=== PATIENT | male | born 1940 | race African-American/Black ===

== ENCOUNTER 2017-06-11 17:21 | Inpatient (IN) | payer MEDICARE, BC ==
[~2017-06-11] VITALS: Ht 170.2 cm; Wt 72.1 kg
[~2017-06-11 17:21] MED LIST: AMLO10TA4 PO; ATOR10TA69 PO; CARV12.545 PO; CITR473S4 PO; COLC0.6T66 PO; CRESTOR PO; FEBU40TA PO; FLUT1DIS3 IH; LEVO150T8 PO; MONT10TA21 PO; OMEP20CA4 PO; PREG75CA PO; ZOLP5TAB2 PO; [UNRECOGNIZED DRUG - CODE] PO
[2017-06-11] MEDS ORDERED: IPRATROPIUM BROMIDE (0.02%) 0.5MG/2.5ML NEB HHN STA (18:00)
[2017-06-11] MEDS ORDERED: NITROGLYCERIN OINT 1GM/INCH UDPKT TD STA (18:00)
[2017-06-11] MEDS ORDERED: ALBUTEROL (0.083%) 2.5MG/3ML NEB HHN STA (18:00)
[2017-06-11] MEDS ORDERED: FUROSEMIDE 40MG/4ML VIAL IV STA (18:00)
[2017-06-11] MEDS ORDERED: METHYLPREDNISOLONE SOD SUCC 125 MG/2 ML VIAL IV STA (18:00)
[2017-06-11] MEDS ORDERED: MAGNESIUM 2 G PREMIX 50 ML IV ONE (18:00)
[2017-06-11 18:32] LABS: INR 1.1; PROTHROMBIN TIME 11.8 sec (9.4-11.6)
[2017-06-11] MEDS ORDERED: ALBUTEROL (0.5%) 2.5MG/0.5ML NEB HHN ONE (18:32)
[2017-06-11] MEDS ORDERED: ALBUTEROL (0.083%) 2.5MG/3ML NEB ONE (18:33)
[2017-06-11] MEDS ORDERED: IPRATROPIUM BROMIDE (0.02%) 0.5MG/2.5ML NEB ONE (18:33)
[2017-06-11 18:37] LABS: BASOPHILS % 0.4 % (0.0-2.0); EOSINOPHILS % 0.1 % (0.0-5.0); HEMATOCRIT. 38.1 % (42.0-52.0); HEMOGLOBIN. 12.2 g/dL (14.0-18.0); LYMPHOCYTES % 12.3 % (20.0-50.0); MEAN CORPUSCULAR HEMOGLOBIN 30.5 pg (28.0-32.0); MEAN PLATELET VOLUME 9.5 fl (7.4-10.4); MONOCYTES % 6.9 % (2.0-8.0); NEUTROPHILS % 80.3 % (40.0-76.0); PLATELET 221 x1000/uL (130-400); RED BLOOD CELL COUNT 4.01 mill/uL (4.7-6.1); RED CELL DISTRIBUTION WIDTH 16.9 % (11.6-14.6)
[2017-06-11 18:41] LABS: CARBON DIOXIDE 22 mEq/L (21-32); CHLORIDE 109 mEq/L (98-107); TROPONIN I 0.37 ng/mL (0.00-0.04)
[2017-06-11] MEDS ORDERED: ASPIRIN 325MG TABLET PO ONE (19:00)
[2017-06-11 20:15] VITALS: BP 126/90
[2017-06-11] MEDS ORDERED: MAGNESIUM CITRATE 300ML SOLUTION PO PRN (23:45)
[2017-06-11] MEDS ORDERED: ONDANSETRON HCL 4MG/2ML VIAL IV PRN (23:45)
[2017-06-12 00:14] VITALS: BP 98/67
[2017-06-12] MEDS: IPRATROPIUM/ALBUTEROL 0.5-3(2.5)MG/3ML NEB HHN PRN (00:20)
[2017-06-12] MEDS ORDERED: NON FORMULARY PATIENT HOME MED EA PO SCH (00:30)
[2017-06-12] MEDS: ZOLPIDEM TARTRATE 5MG TABLET PO SCH ×2 (01:00→21:18)
[2017-06-12 03:22] LABS: CREATINE KINASE MB FRACTION 3.9 ng/mL (0.5-3.6); TROPONIN I 0.23 ng/mL (0.00-0.04)
[2017-06-12 04:00] VITALS: BP 104/68
[2017-06-12] MEDS ORDERED: FUROSEMIDE IV SCH (04:00)
[2017-06-12] MEDS: IPRATROPIUM/ALBUTEROL 0.5-3(2.5)MG/3ML NEB HHN SCH ×5 (04:50→21:03)
[2017-06-12 07:32] LABS: BASOPHILS % 0.6 % (0.0-2.0); HEMATOCRIT. 34.7 % (42.0-52.0); HEMOGLOBIN. 11.2 g/dL (14.0-18.0); LYMPHOCYTES % 9.6 % (20.0-50.0); MEAN CORPUSCULAR HEMOGLOBIN 30.2 pg (28.0-32.0); MEAN CORPUSCULAR VOLUME 93.7 fL (80.0-94.0); MEAN PLATELET VOLUME 8.9 fl (7.4-10.4); MONOCYTES % 3.2 % (2.0-8.0); NEUTROPHILS % 86.6 % (40.0-76.0); PLATELET 211 x1000/uL (130-400); RED CELL DISTRIBUTION WIDTH 16.5 % (11.6-14.6)
[2017-06-12 07:35] LABS: CLARITY URINE CLEAR (CLEAR); COLOR URINE YELLOW (YELLOW); KETONES URINE NEGATIVE (NEGATIVE); LEUKOCYTE ESTERASE URINE NEGATIVE (NEGATIVE); NITRITE URINE NEGATIVE (NEGATIVE); OCCULT BLOOD URINE NEGATIVE (NEGATIVE); PROTEIN URINE NEGATIVE (NEGATIVE); SPECIFIC GRAVITY URINE 1.013 (1.005-1.030); UROBILINOGEN URINE 0.2 E.U./dL (0.2-1.0)
[2017-06-12 08:00] VITALS: BP 102/69
[2017-06-12 08:38] LABS: CARBON DIOXIDE 20 mEq/L (21-32); CHLORIDE 110 mEq/L (98-107); HDL CHOLESTEROL 54 mg/dL (40-59); LDL CHOLESTEROL 52 mg/dL (5-100); PHOSPHORUS 3.9 mg/dL (2.5-4.9); T4 FREE 0.77 ng/dL (0.76-1.46); TOTAL IRON BINDING CAPACITY 319 ug/dL (250-450)
[2017-06-12] MEDS: OMEPRAZOLE 20MG CAPSULE EXTENDED RELEASE PO SCH (08:38)
[2017-06-12] MEDS: COLCHICINE 0.6MG TABLET PO SCH (08:38)
[2017-06-12] MEDS: ASCORBIC ACID 500 MG TABLET PO SCH (08:38)
[2017-06-12] MEDS: AMLODIPINE 10MG TABLET PO SCH (08:38)
[2017-06-12] MEDS: MONTELUKAST SODIUM 10MG TABLET PO SCH (08:39)
[2017-06-12] MEDS ORDERED: CARVEDILOL 12.5MG TABLET PO SCH (09:00)
[2017-06-12] MEDS: LEVOTHYROXINE SODIUM 150MCG TABLET PO SCH (09:07)
[2017-06-12] MEDS: PREGABALIN 75MG CAPSULE PO SCH ×2 (09:07→21:17)
[2017-06-12 12:00] VITALS: BP 116/80
[2017-06-12] MEDS: DEXTROSE 5% IV SCH (12:22)
[2017-06-12] MEDS: FUROSEMIDE IV SCH (12:22)
[2017-06-12] MEDS: WATER IV SCH (12:22)
[2017-06-12] MEDS: BENZONATATE 100MG CAPSULE PO SCH ×2 (14:49→21:17)
[2017-06-12 16:00] VITALS: BP 105/70
[2017-06-12] MEDS: GUAIFENESIN 200MG/10ML SUGAR FREE UDC PO PRN (19:01)
[2017-06-12 20:00] VITALS: BP 132/87
[2017-06-12] MEDS ORDERED: ATORVASTATIN CALCIUM 10MG TABLET PO SCH (21:00)
[2017-06-12] MEDS: CARVEDILOL 12.5MG TABLET PO SCH (21:17)
[2017-06-12] MEDS: ACETAMINOPHEN 325MG TABLET PO PRN (22:03)
[2017-06-13] VITALS (7 sets, daily range): BP systolic 98–120; BP diastolic 67–87
[2017-06-13] MEDS: IPRATROPIUM/ALBUTEROL 0.5-3(2.5)MG/3ML NEB HHN SCH ×7 (04:30→20:52)
[2017-06-13] MEDS: BENZONATATE 100MG CAPSULE PO SCH ×3 (06:19→21:50)
[2017-06-13 07:51] LABS: PHOSPHORUS 3.9 mg/dL (2.5-4.9)
[2017-06-13] MEDS: GUAIFENESIN 200MG/10ML SUGAR FREE UDC PO PRN ×2 (08:40→21:49)
[2017-06-13] MEDS: MONTELUKAST SODIUM 10MG TABLET PO SCH (08:41)
[2017-06-13] MEDS: LEVOTHYROXINE SODIUM 150MCG TABLET PO SCH (08:42)
[2017-06-13] MEDS: ASCORBIC ACID 500 MG TABLET PO SCH (08:42)
[2017-06-13] MEDS: PREGABALIN 75MG CAPSULE PO SCH ×2 (08:42→21:50)
[2017-06-13] MEDS: OMEPRAZOLE 20MG CAPSULE EXTENDED RELEASE PO SCH (08:42)
[2017-06-13] MEDS: CARVEDILOL 12.5MG TABLET PO SCH ×2 (08:42→21:49)
[2017-06-13] MEDS: COLCHICINE 0.6MG TABLET PO SCH (08:43)
[2017-06-13] MEDS: AMLODIPINE 10MG TABLET PO SCH (08:43)
[2017-06-13] MEDS ORDERED: METOLAZONE 10MG TABLET PO SCH (10:30)
[2017-06-13] MEDS: DEXTROSE 5% IV SCH (10:48)
[2017-06-13] MEDS: FUROSEMIDE IV SCH (10:48)
[2017-06-13] MEDS: WATER IV SCH (10:48)
[2017-06-13] MEDS: SODIUM CHLORIDE 0.9% IV SCH (13:21)
[2017-06-13] MEDS: BUMETANIDE IV SCH (13:21)
[2017-06-13] MEDS: ZOLPIDEM TARTRATE 5MG TABLET PO SCH (21:50)
[2017-06-14] VITALS: BP 118/88
[2017-06-14] MEDS: IPRATROPIUM/ALBUTEROL 0.5-3(2.5)MG/3ML NEB HHN SCH ×6 (00:31→20:46)
[2017-06-14] MEDS: BENZONATATE 100MG CAPSULE PO SCH ×3 (06:17→21:26)
[2017-06-14 07:08] LABS: CARBON DIOXIDE 21 mEq/L (21-32); CHLORIDE 107 mEq/L (98-107)
[2017-06-14 08:03] VITALS: BP 118/80
[2017-06-14] MEDS: PREGABALIN 75MG CAPSULE PO SCH ×2 (08:38→20:33)
[2017-06-14] MEDS: FAMOTIDINE 20MG TABLET PO SCH (08:39)
[2017-06-14] MEDS: AMLODIPINE 10MG TABLET PO SCH (08:39)
[2017-06-14] MEDS: LEVOTHYROXINE SODIUM 150MCG TABLET PO SCH (08:39)
[2017-06-14] MEDS: MONTELUKAST SODIUM 10MG TABLET PO SCH (08:39)
[2017-06-14] MEDS: CARVEDILOL 12.5MG TABLET PO SCH ×2 (08:39→20:32)
[2017-06-14] MEDS: ASCORBIC ACID 500 MG TABLET PO SCH (08:39)
[2017-06-14] MEDS: GUAIFENESIN 200MG/10ML SUGAR FREE UDC PO PRN ×2 (08:40→20:34)
[2017-06-14] MEDS: METOLAZONE 10MG TABLET PO SCH (08:40)
[2017-06-14 12:00] VITALS: BP 104/73
[2017-06-14] MEDS: BUMETANIDE IV SCH (14:16)
[2017-06-14] MEDS: SODIUM CHLORIDE 0.9% IV SCH (14:16)
[2017-06-14 16:00] VITALS: BP 111/72
[2017-06-14 20:00] VITALS: BP 98/65
[2017-06-15] VITALS (9 sets, daily range): BP systolic 103–132; BP diastolic 72–87
[2017-06-15] MEDS: ZOLPIDEM TARTRATE 5MG TABLET PO SCH ×2 (00:14→21:24)
[2017-06-15] MEDS: MILRINONE 20MG-DEXT 5% PREMIX 100 ML IV SCH (00:41)
[2017-06-15] MEDS: IPRATROPIUM/ALBUTEROL 0.5-3(2.5)MG/3ML NEB HHN PRN (00:57)
[2017-06-15] MEDS: IPRATROPIUM/ALBUTEROL 0.5-3(2.5)MG/3ML NEB HHN SCH ×5 (02:00→20:03)
[2017-06-15] MEDS: LEVOTHYROXINE SODIUM 150MCG TABLET PO SCH (06:43)
[2017-06-15] MEDS: GUAIFENESIN 200MG/10ML SUGAR FREE UDC PO PRN (06:43)
[2017-06-15] MEDS: BENZONATATE 100MG CAPSULE PO SCH ×3 (06:43→21:24)
[2017-06-15] MEDS: ACETAMINOPHEN 325MG TABLET PO PRN (07:00)
[2017-06-15 07:47] LABS: BASOPHILS % 0.2 % (0.0-2.0); EOSINOPHILS % 4.1 % (0.0-5.0); HEMATOCRIT. 39.6 % (42.0-52.0); HEMOGLOBIN. 12.8 g/dL (14.0-18.0); LYMPHOCYTES % 17.2 % (20.0-50.0); MEAN CORPUSCULAR VOLUME 92.9 fL (80.0-94.0); MEAN PLATELET VOLUME 9.4 fl (7.4-10.4); MONOCYTES % 11.6 % (2.0-8.0); NEUTROPHILS % 66.9 % (40.0-76.0); PLATELET 214 x1000/uL (130-400); RED BLOOD CELL COUNT 4.26 mill/uL (4.7-6.1); RED CELL DISTRIBUTION WIDTH 16.3 % (11.6-14.6)
[2017-06-15 08:08] LABS: INR 1.1; PARTIAL THROMBOPLASTIN TIME 24.3 sec (23.4-31.0); PROTHROMBIN TIME 11.6 sec (9.4-11.6)
[2017-06-15] MEDS: AMLODIPINE 10MG TABLET PO SCH ×2 (09:08→12:02)
[2017-06-15] MEDS: PREGABALIN 75MG CAPSULE PO SCH ×2 (09:08→21:24)
[2017-06-15] MEDS: FAMOTIDINE 20MG TABLET PO SCH (09:08)
[2017-06-15] MEDS: MONTELUKAST SODIUM 10MG TABLET PO SCH (09:09)
[2017-06-15] MEDS: METOLAZONE 10MG TABLET PO SCH (09:09)
[2017-06-15] MEDS: ASCORBIC ACID 500 MG TABLET PO SCH (09:18)
[2017-06-15] MEDS: CARVEDILOL 12.5MG TABLET PO SCH ×2 (09:19→21:24)
[2017-06-15] MEDS ORDERED: REGADENOSON 0.4 MG/5 ML IV NR (11:35)
[2017-06-16] VITALS (11 sets, daily range): BP systolic 96–120; BP diastolic 48–84
[2017-06-16] MEDS: IPRATROPIUM/ALBUTEROL 0.5-3(2.5)MG/3ML NEB HHN SCH ×6 (00:50→20:26)
[2017-06-16] MEDS: ACETAMINOPHEN 325MG TABLET PO PRN (02:57)
[2017-06-16] MEDS: LEVOTHYROXINE SODIUM 150MCG TABLET PO SCH (06:31)
[2017-06-16] MEDS: BENZONATATE 100MG CAPSULE PO SCH ×3 (06:31→21:19)
[2017-06-16 07:06] LABS: BASOPHILS % 0.4 % (0.0-2.0); EOSINOPHILS % 5.9 % (0.0-5.0); HEMATOCRIT. 42.2 % (42.0-52.0); HEMOGLOBIN. 13.8 g/dL (14.0-18.0); LYMPHOCYTES % 16.5 % (20.0-50.0); MEAN CORPUSCULAR HEMOGLOBIN 29.9 pg (28.0-32.0); MEAN CORPUSCULAR VOLUME 91.8 fL (80.0-94.0); MEAN PLATELET VOLUME 9.6 fl (7.4-10.4); NEUTROPHILS % 65.2 % (40.0-76.0); PLATELET 217 x1000/uL (130-400); RED CELL DISTRIBUTION WIDTH 16.2 % (11.6-14.6)
[2017-06-16 07:55] LABS: CARBON DIOXIDE 31 mEq/L (21-32); CHLORIDE 99 mEq/L (98-107); PHOSPHORUS 4.2 mg/dL (2.5-4.9)
[2017-06-16] MEDS: PREGABALIN 75MG CAPSULE PO SCH ×2 (08:39→21:19)
[2017-06-16] MEDS: ASCORBIC ACID 500 MG TABLET PO SCH (08:39)
[2017-06-16] MEDS: FAMOTIDINE 20MG TABLET PO SCH (08:39)
[2017-06-16] MEDS: MONTELUKAST SODIUM 10MG TABLET PO SCH (08:39)
[2017-06-16] MEDS: METOLAZONE 10MG TABLET PO SCH (08:39)
[2017-06-16] MEDS: AMLODIPINE 10MG TABLET PO SCH (08:40)
[2017-06-16] MEDS: CARVEDILOL 12.5MG TABLET PO SCH ×2 (08:40→22:18)
[2017-06-16] MEDS ORDERED: POTASSIUM CHLORIDE 20MEQ TABLET SR PO NR (08:45)
[2017-06-16] MEDS: MILRINONE 20MG-DEXT 5% PREMIX 100 ML IV SCH (10:04)
[2017-06-16] MEDS: GUAIFENESIN 200MG/10ML SUGAR FREE UDC PO PRN (14:20)
[2017-06-16] MEDS: ZOLPIDEM TARTRATE 5MG TABLET PO SCH (21:19)
[2017-06-17] VITALS (15 sets, daily range): BP systolic 85–118; BP diastolic 44–72
[2017-06-17] MEDS ORDERED: BUMETANIDE 1MG/4ML VIAL IV NR
[2017-06-17] MEDS: IPRATROPIUM/ALBUTEROL 0.5-3(2.5)MG/3ML NEB HHN SCH ×4 (04:15→20:08)
[2017-06-17] MEDS: MILRINONE 20MG-DEXT 5% PREMIX 100 ML IV SCH ×2 (06:12→15:43)
[2017-06-17] MEDS: LEVOTHYROXINE SODIUM 150MCG TABLET PO SCH (06:13)
[2017-06-17] MEDS: BENZONATATE 100MG CAPSULE PO SCH ×3 (06:13→21:33)
[2017-06-17 07:04] LABS: PHOSPHORUS 3.4 mg/dL (2.5-4.9)
[2017-06-17] MEDS: PREGABALIN 75MG CAPSULE PO SCH ×2 (08:46→21:33)
[2017-06-17] MEDS: MONTELUKAST SODIUM 10MG TABLET PO SCH (08:46)
[2017-06-17] MEDS: CARVEDILOL 12.5MG TABLET PO SCH ×3 (08:46→21:33)
[2017-06-17] MEDS: METOLAZONE 10MG TABLET PO SCH (08:47)
[2017-06-17] MEDS: FAMOTIDINE 20MG TABLET PO SCH (08:47)
[2017-06-17] MEDS: ASCORBIC ACID 500 MG TABLET PO SCH (08:47)
[2017-06-17] MEDS: AMLODIPINE 10MG TABLET PO SCH (08:47)
[2017-06-17] MEDS: ACETAMINOPHEN 325MG TABLET PO PRN ×2 (08:55→16:33)
[2017-06-17] MEDS ORDERED: POTASSIUM CHLORIDE 20MEQ TABLET SR PO SCH (10:30)
[2017-06-17] MEDS ORDERED: MAGNESIUM 2 G PREMIX 50 ML IV SCH (12:00)
[2017-06-17] MEDS: GUAIFENESIN 200MG/10ML SUGAR FREE UDC PO PRN (16:37)
[2017-06-17] MEDS ORDERED: ZOLPIDEM TARTRATE 5MG TABLET PO ONE (21:10)
[2017-06-18] VITALS (9 sets, daily range): BP systolic 89–113; BP diastolic 53–83
[2017-06-18] MEDS: MILRINONE 20MG-DEXT 5% PREMIX 100 ML IV SCH ×2 (01:04→11:05)
[2017-06-18] MEDS: IPRATROPIUM/ALBUTEROL 0.5-3(2.5)MG/3ML NEB HHN SCH ×5 (04:00→13:50)
[2017-06-18] MEDS: LEVOTHYROXINE SODIUM 150MCG TABLET PO SCH (06:28)
[2017-06-18] MEDS: BENZONATATE 100MG CAPSULE PO SCH ×3 (06:28→21:02)
[2017-06-18 06:56] LABS: BASOPHILS % 0.6 % (0.0-2.0); EOSINOPHILS % 6.4 % (0.0-5.0); HEMATOCRIT. 38.8 % (42.0-52.0); HEMOGLOBIN. 12.6 g/dL (14.0-18.0); LYMPHOCYTES % 17.8 % (20.0-50.0); MEAN CORPUSCULAR HEMOGLOBIN 29.9 pg (28.0-32.0); MEAN CORPUSCULAR VOLUME 92.2 fL (80.0-94.0); MEAN PLATELET VOLUME 9.8 fl (7.4-10.4); MONOCYTES % 13.4 % (2.0-8.0); NEUTROPHILS % 61.8 % (40.0-76.0); PLATELET 219 x1000/uL (130-400); RED BLOOD CELL COUNT 4.21 mill/uL (4.7-6.1); RED CELL DISTRIBUTION WIDTH 16.3 % (11.6-14.6)
[2017-06-18 07:21] LABS: CARBON DIOXIDE 31 mEq/L (21-32); CHLORIDE 99 mEq/L (98-107); TROPONIN I 0.05 ng/mL (0.00-0.04)
[2017-06-18] MEDS: ACETAMINOPHEN 325MG TABLET PO PRN (08:40)
[2017-06-18] MEDS: AMLODIPINE 10MG TABLET PO SCH (09:00)
[2017-06-18] MEDS: METOLAZONE 10MG TABLET PO SCH (09:00)
[2017-06-18] MEDS: MONTELUKAST SODIUM 10MG TABLET PO SCH (09:00)
[2017-06-18] MEDS: CARVEDILOL 12.5MG TABLET PO SCH ×2 (09:00→21:02)
[2017-06-18] MEDS: FAMOTIDINE 20MG TABLET PO SCH (09:00)
[2017-06-18] MEDS: ASCORBIC ACID 500 MG TABLET PO SCH (09:00)
[2017-06-18] MEDS: PREGABALIN 75MG CAPSULE PO SCH ×2 (09:00→21:02)
[2017-06-18] MEDS ORDERED: GENTAMICIN SULF 40MG/ML 2ML VIAL ONE (09:21)
[2017-06-18] MEDS ORDERED: LIDOCAINE HCL 1% 20ML VIAL (Pyxis) INJ ONE ×3 (09:22→14:41)
[2017-06-18] MEDS ORDERED: CEFAZOLIN 1000MG PREMIX 100 ML IV ONE (09:22)
[2017-06-18] MEDS ORDERED: IODIXANOL 320MG/ML 100 ML BOTTLE IV ONE (09:27)
[2017-06-18] MEDS ORDERED: GENTAMICIN/NS IRRIGATION 500 ML IR ONE (09:29)
[2017-06-18] MEDS ORDERED: MIDAZOLAM HCL 2 MG/2 ML VIAL ONE ×2 (14:09→17:00)
[2017-06-18] MEDS ORDERED: FENTANYL CITRATE/PF 50MCG/ML 2ML VIAL ONE (14:09)
[2017-06-18] MEDS ORDERED: DIPHENHYDRAMINE 50MG/ML VIAL ONE (14:12)
[2017-06-18] MEDS ORDERED: PROPOFOL 200MG/20ML VIAL IV ONE (14:38)
[2017-06-18] MEDS ORDERED: SODIUM CHLORIDE 0.9% 10ML VIAL ONE (14:54)
[2017-06-18] MEDS ORDERED: PHENYLEPHRINE HCL 10 MG/ML 1ML (IV VIAL) IV ONE (14:54)
[2017-06-18] MEDS ORDERED: FUROSEMIDE 20MG/2ML VIAL ONE (17:46)
[2017-06-18] MEDS: GUAIFENESIN 200MG/10ML SUGAR FREE UDC PO PRN (21:01)
[2017-06-18] MEDS: ZOLPIDEM TARTRATE 5MG TABLET PO SCH (21:02)
[2017-06-18] MEDS: HYDROCODONE/ACETAMINOPHEN 5/325MG TABLET PO PRN (21:03)
[2017-06-18] MEDS: CEFAZOLIN 1000MG PREMIX 50 ML IV SCH (21:45)
[2017-06-19] VITALS (16 sets, daily range): BP systolic 85–116; BP diastolic 54–73
[2017-06-19] MEDS: MILRINONE 20MG-DEXT 5% PREMIX 100 ML IV SCH ×2 (00:05→12:40)
[2017-06-19] MEDS: IPRATROPIUM/ALBUTEROL 0.5-3(2.5)MG/3ML NEB HHN SCH ×5 (02:22→20:54)
[2017-06-19] MEDS: LEVOTHYROXINE SODIUM 150MCG TABLET PO SCH (06:05)
[2017-06-19] MEDS: BENZONATATE 100MG CAPSULE PO SCH ×3 (06:05→21:21)
[2017-06-19] MEDS: CEFAZOLIN 1000MG PREMIX 50 ML IV SCH (06:05)
[2017-06-19] MEDS: GUAIFENESIN 200MG/10ML SUGAR FREE UDC PO PRN ×2 (06:05→21:21)
[2017-06-19 06:33] LABS: HEMATOCRIT. 37.8 % (42.0-52.0); HEMOGLOBIN. 12.8 g/dL (14.0-18.0); MEAN CORPUSCULAR HEMOGLOBIN 31.5 pg (28.0-32.0); MEAN CORPUSCULAR VOLUME 92.8 fL (80.0-94.0); MEAN PLATELET VOLUME 9.9 fl (7.4-10.4); PLATELET 196 x1000/uL (130-400); RED BLOOD CELL COUNT 4.07 mill/uL (4.7-6.1); RED CELL DISTRIBUTION WIDTH 15.9 % (11.6-14.6)
[2017-06-19] MEDS: ASCORBIC ACID 500 MG TABLET PO SCH (08:13)
[2017-06-19] MEDS: MONTELUKAST SODIUM 10MG TABLET PO SCH (08:13)
[2017-06-19] MEDS: PREGABALIN 75MG CAPSULE PO SCH ×2 (08:13→21:21)
[2017-06-19] MEDS: FAMOTIDINE 20MG TABLET PO SCH (08:14)
[2017-06-19] MEDS: AMLODIPINE 10MG TABLET PO SCH (08:17)
[2017-06-19] MEDS: CARVEDILOL 12.5MG TABLET PO SCH (08:18)
[2017-06-19] MEDS: HYDROCODONE/ACETAMINOPHEN 5/325MG TABLET PO PRN ×2 (08:23→15:14)
[2017-06-19] MEDS ORDERED: POTASSIUM CHLORIDE 20MEQ TABLET SR PO NR (11:30)
[2017-06-19] MEDS ORDERED: MAGNESIUM 1 G PREMIX 100 ML IV NR (14:00)
[2017-06-19 14:13] LABS: PLATELET ESTIMATE NORMAL
[2017-06-19] MEDS: METOPROLOL TARTRATE 25MG TABLET PO SCH (21:21)
[2017-06-19] MEDS: CARVEDILOL 25MG TABLET PO SCH (21:21)
[2017-06-19] MEDS: ZOLPIDEM TARTRATE 5MG TABLET PO SCH (21:21)
[2017-06-20] VITALS (14 sets, daily range): BP systolic 91–130; BP diastolic 50–80
[2017-06-20] MEDS: IPRATROPIUM/ALBUTEROL 0.5-3(2.5)MG/3ML NEB HHN SCH ×5 (01:03→21:00)
[2017-06-20] MEDS: LEVOTHYROXINE SODIUM 150MCG TABLET PO SCH (06:10)
[2017-06-20] MEDS: HYDROCODONE/ACETAMINOPHEN 5/325MG TABLET PO PRN ×2 (06:10→17:50)
[2017-06-20] MEDS: BENZONATATE 100MG CAPSULE PO SCH ×3 (06:10→21:06)
[2017-06-20 07:27] LABS: CHLORIDE 98 mEq/L (98-107)
[2017-06-20 07:53] LABS: CARBON DIOXIDE 31 mEq/L (21-32)
[2017-06-20] MEDS: PREGABALIN 75MG CAPSULE PO SCH ×2 (09:01→21:06)
[2017-06-20] MEDS: FAMOTIDINE 20MG TABLET PO SCH (09:01)
[2017-06-20] MEDS: ASCORBIC ACID 500 MG TABLET PO SCH (09:01)
[2017-06-20] MEDS: MONTELUKAST SODIUM 10MG TABLET PO SCH (09:01)
[2017-06-20] MEDS: METOPROLOL TARTRATE 25MG TABLET PO SCH ×2 (09:51→21:08)
[2017-06-20] MEDS: CARVEDILOL 25MG TABLET PO SCH ×2 (09:52→21:06)
[2017-06-20] MEDS: AMLODIPINE 10MG TABLET PO SCH (10:08)
[2017-06-20] MEDS: ZOLPIDEM TARTRATE 5MG TABLET PO SCH (22:04)
[2017-06-21] VITALS (10 sets, daily range): BP systolic 98–113; BP diastolic 54–79
[2017-06-21] MEDS: IPRATROPIUM/ALBUTEROL 0.5-3(2.5)MG/3ML NEB HHN SCH ×3 (00:45→07:23)
[2017-06-21] MEDS: LEVOTHYROXINE SODIUM 150MCG TABLET PO SCH (06:27)
[2017-06-21] MEDS: BENZONATATE 100MG CAPSULE PO SCH ×2 (06:27→14:00)
[2017-06-21 07:03] LABS: BASOPHILS % 0.9 % (0.0-2.0); HEMATOCRIT. 37.8 % (42.0-52.0); HEMOGLOBIN. 12.2 g/dL (14.0-18.0); LYMPHOCYTES % 18.2 % (20.0-50.0); MEAN CORPUSCULAR HEMOGLOBIN 30.2 pg (28.0-32.0); MEAN CORPUSCULAR VOLUME 93.9 fL (80.0-94.0); MEAN PLATELET VOLUME 10.1 fl (7.4-10.4); MONOCYTES % 14.5 % (2.0-8.0); NEUTROPHILS % 62.4 % (40.0-76.0); PLATELET 172 x1000/uL (130-400); RED BLOOD CELL COUNT 4.03 mill/uL (4.7-6.1); RED CELL DISTRIBUTION WIDTH 15.9 % (11.6-14.6)
[2017-06-21 07:33] LABS: PHOSPHORUS 3.3 mg/dL (2.5-4.9)
[2017-06-21] MEDS: AMLODIPINE 10MG TABLET PO SCH (09:00)
[2017-06-21] MEDS: FAMOTIDINE 20MG TABLET PO SCH (09:01)
[2017-06-21] MEDS: ASCORBIC ACID 500 MG TABLET PO SCH (09:01)
[2017-06-21] MEDS: MONTELUKAST SODIUM 10MG TABLET PO SCH (09:01)
[2017-06-21] MEDS: PREGABALIN 75MG CAPSULE PO SCH (09:01)
[2017-06-21] MEDS: CARVEDILOL 25MG TABLET PO SCH (09:03)
[2017-06-21] MEDS: METOPROLOL TARTRATE 25MG TABLET PO SCH (09:03)
[2017-06-21] MEDS ORDERED: MAGNESIUM 2 G PREMIX 50 ML IV NR (11:00)
== END 2017-06-21 15:35 | disposition home or self-care (01) | DRG 222 ==
LOC: ER 17:21 → 7WST 19:06 → EDBEDREQ 19:07 → EDBEDREQTM 19:07 → ENRESERV 19:10 → 3WST 06-14 22:28
PROVIDERS: ADMIT Internal Medicine; ATTEND Internal Medicine
PROC: 02HK3KZ Insertion of Defibrillator Lead into Right Ventricle, Percutaneous Approach (ICD-10-PCS; 2017-06-18)
PROC: 4A023N6 Measurement of Cardiac Sampling and Pressure, Right Heart, Percutaneous Approach (ICD-10-PCS; 2017-06-18)
PROC: 02H43JZ Insertion of Pacemaker Lead into Coronary Vein, Percutaneous Approach (ICD-10-PCS; 2017-06-18)
PROC: 02H63KZ Insertion of Defibrillator Lead into Right Atrium, Percutaneous Approach (ICD-10-PCS; 2017-06-18)
PROC: B5171ZZ Fluoroscopy of Left Subclavian Vein using Low Osmolar Contrast (ICD-10-PCS; 2017-06-18)
PROC: 0JH609Z Insertion of Cardiac Resynchronization Defibrillator Pulse Generator into Chest Subcutaneous Tissue and Fascia, Open Approach (ICD-10-PCS; principal; 2017-06-18 14:00)
DX: I13.0 Hypertensive heart and chronic kidney disease with heart failure and stage 1 through stage 4 chronic kidney disease, or unspecified chronic kidney disease (principal); I50.23 Acute on chronic systolic (congestive) heart failure; J96.20 Acute and chronic respiratory failure, unspecified whether with hypoxia or hypercapnia; R65.11 Systemic inflammatory response syndrome (SIRS) of non-infectious origin with acute organ dysfunction; E87.2 Acidosis; G62.9 Polyneuropathy, unspecified; I48.91 Unspecified atrial fibrillation; I27.20 Pulmonary hypertension, unspecified; E83.42 Hypomagnesemia; E83.52 Hypercalcemia; N18.4 Chronic kidney disease, stage 4 (severe); N17.9 Acute kidney failure, unspecified; I42.0 Dilated cardiomyopathy; I36.1 Nonrheumatic tricuspid (valve) insufficiency; E87.6 Hypokalemia; I44.7 Left bundle-branch block, unspecified; D64.9 Anemia, unspecified; E03.9 Hypothyroidism, unspecified; E78.5 Hyperlipidemia, unspecified; I34.0 Nonrheumatic mitral (valve) insufficiency; I50.82 Biventricular heart failure; J32.9 Chronic sinusitis, unspecified; J44.9 Chronic obstructive pulmonary disease, unspecified; K21.9 Gastro-esophageal reflux disease without esophagitis; M10.9 Gout, unspecified; Z77.22 Contact with and (suspected) exposure to environmental tobacco smoke (acute) (chronic); M19.90 Unspecified osteoarthritis, unspecified site; E21.1 Secondary hyperparathyroidism, not elsewhere classified; N25.89 Other disorders resulting from impaired renal tubular function; G89.29 Other chronic pain; M47.896 Other spondylosis, lumbar region; M47.898 Other spondylosis, sacral and sacrococcygeal region; R74.0 Nonspecific elevation of levels of transaminase and lactic acid dehydrogenase [LDH]; Z82.49 Family history of ischemic heart disease and other diseases of the circulatory system; Z79.899 Other long term (current) drug therapy; Z87.11 Personal history of peptic ulcer disease; Z87.442 Personal history of urinary calculi; Z99.81 Dependence on supplemental oxygen
CPT/HCPCS: 33225; 33249; 36415; 71010; 75820; 80048; 80053; 80061; 80069; 80076; 81003; 82550; 82553; 83036; 83540; 83550; 83605; 83690; 83735; 83880; 83970; 84100; 84153; 84439; 84443; 84484; 84550; 85025; 85610; 85651; 85730; 87040; 87086; 93005; 93306; 93451; 93641; 93970; 94640; 94664; 96365; 96366; 96375; 97162; 99285; A4216; C1769; C1882; C1887; C1892; C1893; C1898; C1899; C1900; J0690; J1200; J1580; J1644; J1940; J2250; J2260; J2370; J2704; J2930; J3010; J3475; J3490; J7040; J7050; J7060; J7611; J7620; Q9967

== ENCOUNTER 2017-08-28 08:22 | Day surgery (SDC) | payer MEDICARE, BC ==
[~2017-08-28 08:22] MED LIST changes: -AMLO10TA4 PO; -CARV12.545 PO
[2017-08-28] MEDS ORDERED: COR25 PO ×2 (10:25)
[2017-08-28] MEDS ORDERED: SACU1TAB PO (10:25)
[2017-08-28] MEDS ORDERED: METO25TA6 PO (10:25)
[2017-08-28] MEDS ORDERED: PRED5TAB48 PO (10:25)
[2017-08-28] MEDS ORDERED: FURO80TA87 PO (10:25)
[2017-08-28] MEDS ORDERED: IODIXANOL 320MG/ML 100 ML BOTTLE IV ONE (12:03)
[2017-08-28] MEDS ORDERED: FENTANYL CITRATE/PF 50MCG/ML 2ML VIAL ONE (12:03)
[2017-08-28] MEDS ORDERED: LIDOCAINE HCL 1% 20ML VIAL (Pyxis) INJ ONE (12:04)
[2017-08-28] MEDS ORDERED: MIDAZOLAM HCL 2 MG/2 ML VIAL ONE (12:05)
[2017-08-28] MEDS ORDERED: HEPARIN SODIUM 1,000 UNIT/1ML VIAL IV ONE (13:36)
[2017-08-28] MEDS ORDERED: NICARDIPINE 100MCG/ML 10ML VIAL (CATH LAB) IV ONE (13:36)
[2017-08-28] MEDS ORDERED: NITROGLYCERIN 50MCG/ML 10ML VIAL (CATH LAB) IV ONE (13:36)
== END 2017-08-28 16:05 | disposition home or self-care (01) ==
LOC: CCL 08:22
PROVIDERS: ATTEND Specialist
DX: I25.10 Atherosclerotic heart disease of native coronary artery without angina pectoris (principal); I42.0 Dilated cardiomyopathy; N18.4 Chronic kidney disease, stage 4 (severe); J44.9 Chronic obstructive pulmonary disease, unspecified
CPT/HCPCS: 93458; C1769; C1887; C1893; J1644; J2250; J3010; J3490; Q9967; 99152; G0500

== ENCOUNTER 2018-09-04 12:32 | Inpatient (IN) | payer MEDICARE, BC ==
[~2018-09-04] VITALS: Ht 170.2 cm; Wt 73.9 kg
[~2018-09-04 12:32] MED LIST changes: +COR25 PO; +FURO80TA87 PO; +METO25TA6 PO; +PRED5TAB48 PO; +SACU1TAB PO
[2018-09-04 14:00] VITALS: BP 119/79
[2018-09-04 16:14] LABS: HEMATOCRIT 33.5 % (42.0-52.0); HEMOGLOBIN 10.9 g/dL (14.0-18.0); MEAN CORPUSCULAR HEMOGLOBIN 31.1 pg (28.0-32.0); MEAN CORPUSCULAR VOLUME 95.2 fL (80.0-94.0); PLATELET 156 x1000/uL (130-400); RED BLOOD CELL COUNT 3.52 mill/uL (4.7-6.1); RED CELL DISTRIBUTION WIDTH 14.5 % (11.6-14.6)
[2018-09-04 16:18] LABS: INR 1.1; PARTIAL THROMBOPLASTIN TIME 28.1 sec (23.4-31.0); PROTHROMBIN TIME 10.6 sec (9.1-11.1)
[2018-09-04 16:42] LABS: HEPATITIS B SURFACE AB 5.2 mIU/mL
[2018-09-04] MEDS ORDERED: SODIUM POLYSTYRENE SULFONATE 15 G/60 ML BOT PO NR (19:00)
[2018-09-04 20:00] VITALS: BP 138/76
[2018-09-04 21:41] LABS: T4 FREE 1.02 ng/dL (0.76-1.46)
[2018-09-05] VITALS: BP 119/80
[2018-09-05 01:53] LABS: CLARITY URINE CLEAR (CLEAR); COLOR URINE YELLOW (YELLOW); KETONES URINE NEGATIVE (NEGATIVE); LEUKOCYTE ESTERASE URINE NEGATIVE (NEGATIVE); NITRITE URINE NEGATIVE (NEGATIVE); OCCULT BLOOD URINE NEGATIVE (NEGATIVE); PROTEIN URINE NEGATIVE (NEGATIVE); SPECIFIC GRAVITY URINE 1.013 (1.005-1.030); UROBILINOGEN URINE 0.2 E.U./dL (0.2-1.0)
[2018-09-05 04:00] VITALS: BP 101/53
[2018-09-05 06:44] LABS: CHLORIDE 115 mEq/L (98-107)
[2018-09-05 06:45] LABS: BASOPHILS % 0.8 % (0.0-2.0); HEMATOCRIT. 30.3 % (42.0-52.0); HEMOGLOBIN. 9.9 g/dL (14.0-18.0); LYMPHOCYTES % 28.7 % (20.0-50.0); MEAN CORPUSCULAR HEMOGLOBIN 30.8 pg (28.0-32.0); MEAN CORPUSCULAR VOLUME 94.4 fL (80.0-94.0); MEAN PLATELET VOLUME 9.8 fl (7.4-10.4); MONOCYTES % 7.4 % (2.0-8.0); NEUTROPHILS % 57.1 % (40.0-76.0); PLATELET 136 x1000/uL (130-400); RED BLOOD CELL COUNT 3.21 mill/uL (4.7-6.1); RED CELL DISTRIBUTION WIDTH 14.4 % (11.6-14.6)
[2018-09-05 07:00] LABS: HEPATITIS B SURFACE ANTIGEN NEGATIVE
[2018-09-05 07:12] LABS: PHOSPHORUS 3.9 mg/dL (2.5-4.9)
[2018-09-05 07:13] LABS: LDL CHOLESTEROL 82 mg/dL (5-100)
[2018-09-05 07:15] LABS: HDL CHOLESTEROL 35 mg/dL (40-59); TOTAL IRON BINDING CAPACITY 269 ug/dL (250-450)
[2018-09-05 07:18] LABS: T4 FREE 1.08 ng/dL (0.76-1.46)
[2018-09-05 10:26] VITALS: BP 125/71
[2018-09-05 11:55] VITALS: BP 121/71
[2018-09-10 04:16] LABS: 25-HYDROXY VITAMIN D3 73 ng/mL (.)
== END 2018-09-05 12:00 | disposition home or self-care (01) | DRG 640 ==
LOC: 6EST 12:32
PROVIDERS: ADMIT Internal Medicine; ATTEND Internal Medicine
DX: E87.5 Hyperkalemia (principal); N18.6 End stage renal disease; I13.2 Hypertensive heart and chronic kidney disease with heart failure and with stage 5 chronic kidney disease, or end stage renal disease; I42.0 Dilated cardiomyopathy; I50.22 Chronic systolic (congestive) heart failure; N25.81 Secondary hyperparathyroidism of renal origin; D64.9 Anemia, unspecified; M19.90 Unspecified osteoarthritis, unspecified site; T50.905A Adverse effect of unspecified drugs, medicaments and biological substances, initial encounter; E03.9 Hypothyroidism, unspecified; E78.5 Hyperlipidemia, unspecified; G62.9 Polyneuropathy, unspecified; I27.20 Pulmonary hypertension, unspecified; J44.9 Chronic obstructive pulmonary disease, unspecified; K21.9 Gastro-esophageal reflux disease without esophagitis; M10.9 Gout, unspecified; Z87.11 Personal history of peptic ulcer disease; Z87.891 Personal history of nicotine dependence; Z99.2 Dependence on renal dialysis; Y92.89 Other specified places as the place of occurrence of the external cause
CPT/HCPCS: 36415; 71045; 71046; 80048; 80061; 80076; 82248; 82306; 83540; 83550; 83880; 84100; 84132; 84439; 84443; 84481; 84484; 84550; 85027; 85651; 86705; 86706; 86803; 87070; 87340; 93005

== ENCOUNTER 2018-09-30 13:52 | Inpatient (IN) | payer MEDICARE, BC ==
[~2018-09-30] VITALS: Ht 170.2 cm; Wt 69.9 kg
[~2018-09-30 13:52] MED LIST changes: -COLC0.6T66 PO; -CRESTOR PO; -PRED5TAB48 PO; -SACU1TAB PO
[2018-09-30] MEDS ORDERED: NON FORMULARY PATIENT HOME MED XX SCH (14:45)
[2018-09-30 15:02] LABS: BASOPHILS % 1.1 % (0.0-2.0); EOSINOPHILS % 3.2 % (0.0-5.0); HEMATOCRIT. 33.2 % (42.0-52.0); LYMPHOCYTES % 27.5 % (20.0-50.0); MEAN CORPUSCULAR HEMOGLOBIN 31.7 pg (28.0-32.0); MEAN CORPUSCULAR VOLUME 95.9 fL (80.0-94.0); MEAN PLATELET VOLUME 9.3 fl (7.4-10.4); MONOCYTES % 8.8 % (2.0-8.0); NEUTROPHILS % 59.4 % (40.0-76.0); PLATELET 190 x1000/uL (130-400); RED BLOOD CELL COUNT 3.46 mill/uL (4.7-6.1); RED CELL DISTRIBUTION WIDTH 14.7 % (11.6-14.6)
[2018-09-30 15:10] LABS: PARTIAL THROMBOPLASTIN TIME 30.8 sec (23.4-31.0); PROTHROMBIN TIME 10.2 sec (9.1-11.1)
[2018-09-30] MEDS ORDERED: SODIUM BICARBONATE 4% (2.4MEQ) 5ML VIAL IV ONE (15:24)
[2018-09-30] MEDS ORDERED: LIDOCAINE HCL 1% 20ML VIAL (Pyxis) INJ ONE (15:24)
[2018-09-30 17:00] LABS: HEPATITIS B SURFACE AB 6.7 mIU/mL
[2018-09-30 17:41] LABS: HEPATITIS A AB IGM NEGATIVE (NEGATIVE)
[2018-09-30 17:54] VITALS: BP 123/69
[2018-09-30] MEDS ORDERED: ACETAMINOPHEN WITH CODEINE 300/30MG TABLET PO PRN (19:30)
[2018-09-30 20:00] VITALS: BP 127/63
[2018-09-30] MEDS: ALBUTEROL (0.083%) 2.5MG/3ML NEB HHN SCH (20:02)
[2018-09-30] MEDS: BUDESONIDE 0.5MG/2ML NEB HHN SCH ×2 (20:02→20:48)
[2018-09-30] MEDS: ATORVASTATIN CALCIUM 10MG TABLET PO SCH (20:07)
[2018-09-30] MEDS: CARVEDILOL 12.5MG TABLET PO SCH (20:08)
[2018-10-01] VITALS (18 sets, daily range): BP systolic 104–148; BP diastolic 56–77
[2018-10-01] MEDS: ALBUTEROL (0.083%) 2.5MG/3ML NEB HHN SCH ×2 (02:00→20:48)
[2018-10-01 06:51] LABS: BASOPHILS % 1.1 % (0.0-2.0); EOSINOPHILS % 5.4 % (0.0-5.0); HEMATOCRIT. 29.8 % (42.0-52.0); HEMOGLOBIN. 9.7 g/dL (14.0-18.0); LYMPHOCYTES % 31.9 % (20.0-50.0); MEAN CORPUSCULAR HEMOGLOBIN 31.2 pg (28.0-32.0); MEAN CORPUSCULAR VOLUME 96.1 fL (80.0-94.0); MEAN PLATELET VOLUME 9.7 fl (7.4-10.4); MONOCYTES % 9.3 % (2.0-8.0); NEUTROPHILS % 52.3 % (40.0-76.0); PLATELET 169 x1000/uL (130-400); RED CELL DISTRIBUTION WIDTH 14.7 % (11.6-14.6)
[2018-10-01 06:59] LABS: CHLORIDE 111 mEq/L (98-107)
[2018-10-01] MEDS ORDERED: CEFAZOLIN 1000MG PREMIX 50 ML IV SCH (07:00)
[2018-10-01 07:12] LABS: PHOSPHORUS 3.6 mg/dL (2.5-4.9)
[2018-10-01] MEDS ORDERED: CEFAZOLIN 1000MG PREMIX 50 ML IV ONE (07:38)
[2018-10-01] MEDS ORDERED: LIDOCAINE HCL 1% 20ML VIAL (Pyxis) INJ ONE (07:39)
[2018-10-01] MEDS ORDERED: FENTANYL CITRATE/PF 50MCG/ML 2ML VIAL ONE (07:39)
[2018-10-01] MEDS ORDERED: SODIUM BICARBONATE 4% (2.4MEQ) 5ML VIAL IV ONE (07:39)
[2018-10-01] MEDS ORDERED: MANNITOL 12.5G (25%) VIAL 50ML IV NR (08:00)
[2018-10-01] MEDS ORDERED: FENTANYL CITRATE/PF 50MCG/ML 2ML VIAL IV ONE (08:30)
[2018-10-01] MEDS: CARVEDILOL 12.5MG TABLET PO SCH ×2 (09:00→20:44)
[2018-10-01] MEDS: FOLIC ACID/VITAMIN B COMP W-C TABLET PO SCH (09:45)
[2018-10-01] MEDS: ACETAMINOPHEN WITH CODEINE 300/30MG TABLET PO PRN (10:48)
[2018-10-01] MEDS: TRAMADOL HCL/ACETAMINOPHEN 37.5/325MG TABLET PO PRN ×2 (14:36→20:42)
[2018-10-01] MEDS: ATORVASTATIN CALCIUM 10MG TABLET PO SCH (20:41)
[2018-10-01] MEDS: DOCUSATE SODIUM 100MG CAPSULE PO SCH (20:42)
[2018-10-01] MEDS: AMOXICILLIN/POTASSIUM CLAVULANATE 500/125MG TAB PO SCH (20:43)
[2018-10-01] MEDS ORDERED: EPOETIN ALFA 4000UNITS/ML VIAL SUBCUT SCH (21:00)
[2018-10-02] VITALS: BP 108/63
[2018-10-02] MEDS: ALBUTEROL (0.083%) 2.5MG/3ML NEB HHN SCH ×3 (01:51→21:02)
[2018-10-02 04:00] VITALS: BP 103/67
[2018-10-02] MEDS: TRAMADOL HCL/ACETAMINOPHEN 37.5/325MG TABLET PO PRN ×3 (05:54→21:50)
[2018-10-02 06:51] LABS: EOSINOPHILS % 5.5 % (0.0-5.0); HEMATOCRIT. 29.8 % (42.0-52.0); HEMOGLOBIN. 9.6 g/dL (14.0-18.0); LYMPHOCYTES % 30.4 % (20.0-50.0); MEAN CORPUSCULAR HEMOGLOBIN 30.9 pg (28.0-32.0); MEAN CORPUSCULAR VOLUME 95.5 fL (80.0-94.0); MEAN PLATELET VOLUME 9.3 fl (7.4-10.4); NEUTROPHILS % 52.1 % (40.0-76.0); PLATELET 153 x1000/uL (130-400); RED BLOOD CELL COUNT 3.12 mill/uL (4.7-6.1); RED CELL DISTRIBUTION WIDTH 14.3 % (11.6-14.6)
[2018-10-02 07:53] VITALS: BP 110/69
[2018-10-02] MEDS: MANNITOL 12.5G (25%) VIAL 50ML IV NR ×2 (08:00→19:30)
[2018-10-02] MEDS: CARVEDILOL 12.5MG TABLET PO SCH ×2 (09:00→21:47)
[2018-10-02 09:41] LABS: CHLORIDE 111 mEq/L (98-107)
[2018-10-02 09:51] LABS: TOTAL IRON BINDING CAPACITY 232 ug/dL (250-450)
[2018-10-02] MEDS: FOLIC ACID/VITAMIN B COMP W-C TABLET PO SCH (09:53)
[2018-10-02] MEDS: AMOXICILLIN/POTASSIUM CLAVULANATE 500/125MG TAB PO SCH (09:53)
[2018-10-02] MEDS: DOCUSATE SODIUM 100MG CAPSULE PO SCH ×2 (09:53→18:32)
[2018-10-02] MEDS: ACETAMINOPHEN WITH CODEINE 300/30MG TABLET PO PRN (11:48)
[2018-10-02 12:11] VITALS: BP 141/79
[2018-10-02] MEDS: IRON SUCROSE COMPLEX 100 MG/5 ML ML IV SCH (14:02)
[2018-10-02 15:42] VITALS: BP 154/84
[2018-10-02] MEDS: HYDROMORPHONE HCL/PF 2MG/ML CPJ IV PRN (17:00)
[2018-10-02 20:00] VITALS: BP 145/86
[2018-10-02] MEDS: BUDESONIDE 0.5MG/2ML NEB HHN SCH (21:01)
[2018-10-02] MEDS: ATORVASTATIN CALCIUM 10MG TABLET PO SCH (21:47)
[2018-10-03] VITALS: BP 128/81
[2018-10-03] MEDS: HYDROMORPHONE HCL/PF 2MG/ML CPJ IV PRN ×2 (01:02→15:50)
[2018-10-03] MEDS: ZOLPIDEM TARTRATE 5MG TABLET PO PRN ×2 (01:04→23:40)
[2018-10-03] MEDS: ALBUTEROL (0.083%) 2.5MG/3ML NEB HHN SCH ×4 (02:00→21:46)
[2018-10-03 04:00] VITALS: BP 111/62
[2018-10-03 07:23] LABS: BASOPHILS % 0.6 % (0.0-2.0); EOSINOPHILS % 2.7 % (0.0-5.0); HEMATOCRIT. 30.7 % (42.0-52.0); HEMOGLOBIN. 10.1 g/dL (14.0-18.0); LYMPHOCYTES % 24.2 % (20.0-50.0); MEAN CORPUSCULAR HEMOGLOBIN 31.1 pg (28.0-32.0); MEAN PLATELET VOLUME 9.4 fl (7.4-10.4); MONOCYTES % 12.7 % (2.0-8.0); NEUTROPHILS % 59.8 % (40.0-76.0); PLATELET 175 x1000/uL (130-400); RED BLOOD CELL COUNT 3.23 mill/uL (4.7-6.1); RED CELL DISTRIBUTION WIDTH 14.3 % (11.6-14.6)
[2018-10-03 07:30] VITALS: BP 123/66
[2018-10-03] MEDS: BUDESONIDE 0.5MG/2ML NEB HHN SCH ×2 (07:33→21:46)
[2018-10-03] MEDS: AMOXICILLIN/POTASSIUM CLAVULANATE 500/125MG TAB PO SCH (09:26)
[2018-10-03] MEDS: ACETAMINOPHEN 325MG TABLET PO PRN (09:26)
[2018-10-03] MEDS: IRON SUCROSE COMPLEX 100 MG/5 ML ML IV SCH (09:26)
[2018-10-03] MEDS: CARVEDILOL 12.5MG TABLET PO SCH ×2 (09:27→21:36)
[2018-10-03] MEDS: FOLIC ACID/VITAMIN B COMP W-C TABLET PO SCH (09:27)
[2018-10-03] MEDS: DOCUSATE SODIUM 100MG CAPSULE PO SCH (09:27)
[2018-10-03] MEDS: TRAMADOL HCL/ACETAMINOPHEN 37.5/325MG TABLET PO PRN ×2 (09:27→19:16)
[2018-10-03] MEDS ORDERED: BISACODYL 5MG TABLET PO PRN (11:45)
[2018-10-03 12:00] VITALS: BP 125/74
[2018-10-03] MEDS ORDERED: CETIRIZINE 10MG TABLET PO SCH (12:00)
[2018-10-03] MEDS ORDERED: MAGNESIUM CITRATE 300ML SOLUTION PO PRN (12:00)
[2018-10-03] MEDS ORDERED: SODIUM CHLORIDE 45ML SPRAY NS PRN (14:00)
[2018-10-03] MEDS: OXYMETAZOLINE HCL NASAL SPRAY 15ML BOTHNSTRLS SCH ×2 (14:03→21:49)
[2018-10-03 16:00] VITALS: BP 120/71
[2018-10-03] MEDS ORDERED: ONDANSETRON HCL 4MG/2ML INJ IV PRN (17:15)
[2018-10-03] MEDS ORDERED: SENNOSIDES/DOCUSATE SOD 8.6/50MG TABLET PO PRN (17:15)
[2018-10-03 20:00] VITALS: BP 124/76
[2018-10-03] MEDS ORDERED: LORATADINE/PSEUDOEPHED 5/120MG TABLET 12HR PO SCH (21:00)
[2018-10-03] MEDS: ATORVASTATIN CALCIUM 10MG TABLET PO SCH (21:37)
[2018-10-03] MEDS: LORATADINE PO SCH (23:40)
[2018-10-03] MEDS: PSEUDOEPHEDRINE PO SCH (23:40)
[2018-10-04] VITALS (31 sets, daily range): BP systolic 113–175; BP diastolic 56–96
[2018-10-04] MEDS: ALBUTEROL (0.083%) 2.5MG/3ML NEB HHN SCH ×4 (03:00→21:34)
[2018-10-04 06:23] LABS: BASOPHILS % 0.3 % (0.0-2.0); HEMATOCRIT. 31.4 % (42.0-52.0); HEMOGLOBIN. 10.1 g/dL (14.0-18.0); LYMPHOCYTES % 22.3 % (20.0-50.0); MEAN CORPUSCULAR HEMOGLOBIN 30.7 pg (28.0-32.0); MEAN CORPUSCULAR VOLUME 95.1 fL (80.0-94.0); MEAN PLATELET VOLUME 9.4 fl (7.4-10.4); MONOCYTES % 11.8 % (2.0-8.0); NEUTROPHILS % 64.6 % (40.0-76.0); PLATELET 171 x1000/uL (130-400); RED CELL DISTRIBUTION WIDTH 14.2 % (11.6-14.6)
[2018-10-04 07:14] LABS: PHOSPHORUS 2.4 mg/dL (2.5-4.9)
[2018-10-04] MEDS: BUDESONIDE 0.5MG/2ML NEB HHN SCH ×2 (07:56→21:35)
[2018-10-04] MEDS: FOLIC ACID/VITAMIN B COMP W-C TABLET PO SCH (08:40)
[2018-10-04] MEDS: IRON SUCROSE COMPLEX 100 MG/5 ML ML IV SCH (08:40)
[2018-10-04] MEDS: AMOXICILLIN/POTASSIUM CLAVULANATE 500/125MG TAB PO SCH (08:40)
[2018-10-04] MEDS: TRAMADOL HCL/ACETAMINOPHEN 37.5/325MG TABLET PO PRN (08:40)
[2018-10-04] MEDS: OXYMETAZOLINE HCL NASAL SPRAY 15ML BOTHNSTRLS SCH ×2 (08:40→21:08)
[2018-10-04] MEDS: CARVEDILOL 12.5MG TABLET PO SCH ×2 (09:00→21:08)
[2018-10-04] MEDS: HYDROMORPHONE HCL/PF 2MG/ML CPJ IV PRN ×2 (11:53→19:00)
[2018-10-04] MEDS: DOCUSATE SODIUM 250MG CAPSULE PO SCH (14:55)
[2018-10-04 17:12] LABS: T4 FREE 1.38 ng/dL (0.76-1.46)
[2018-10-04] MEDS ORDERED: ONDANSETRON HCL 4MG/2ML INJ IV PRN (18:15)
[2018-10-04] MEDS ORDERED: ACETAMINOPHEN 650MG/20.3ML UDC GT PRN (18:15)
[2018-10-04] MEDS ORDERED: ACETAMINOPHEN 325MG TABLET PO PRN (18:15)
[2018-10-04] MEDS ORDERED: PIPERACILLIN/TAZ 3.375G PREMIX 50 ML IV SCH (18:15)
[2018-10-04] MEDS ORDERED: SODIUM CHLORIDE 0.9% INJ 3ML FLUSH IV SCH (18:15)
[2018-10-04] MEDS: METHYLPREDNISOLONE SOD SUCC 125 MG/2 ML VIAL IV SCH (19:00)
[2018-10-04] MEDS ORDERED: VANCOMYCIN 1 G PREMIX 200 ML IV NR (20:00)
[2018-10-04] MEDS: PIPERACILLIN/TAZ 2.25G PREMIX 50 ML IV SCH (20:10)
[2018-10-04] MEDS: LORATADINE PO SCH (21:07)
[2018-10-04] MEDS: PSEUDOEPHEDRINE PO SCH (21:07)
[2018-10-04] MEDS: ATORVASTATIN CALCIUM 10MG TABLET PO SCH (21:08)
[2018-10-04] MEDS: SODIUM CHLORIDE 0.9% INJ 3ML FLUSH IVF SCH (21:09)
[2018-10-04] MEDS ORDERED: SODIUM CHLORIDE 0.9% INJ 3ML FLUSH IVF SCH (22:00)
[2018-10-05] VITALS (60 sets, daily range): BP systolic 121–185; BP diastolic 35–106
[2018-10-05] MEDS: METHYLPREDNISOLONE SOD SUCC 125 MG/2 ML VIAL IV SCH ×4 (00:21→18:06)
[2018-10-05] MEDS: ZOLPIDEM TARTRATE 5MG TABLET PO PRN ×2 (01:50→23:30)
[2018-10-05] MEDS: HYDROMORPHONE HCL/PF 2MG/ML CPJ IV PRN (01:50)
[2018-10-05] MEDS: ALBUTEROL (0.083%) 2.5MG/3ML NEB HHN SCH ×4 (02:09→20:17)
[2018-10-05] MEDS: PIPERACILLIN/TAZ 2.25G PREMIX 50 ML IV SCH ×3 (02:32→18:06)
[2018-10-05] MEDS: SODIUM CHLORIDE 0.9% INJ 3ML FLUSH IVF SCH ×2 (05:04→22:56)
[2018-10-05 05:29] LABS: BASOPHILS % 0.1 % (0.0-2.0); HEMATOCRIT. 32.5 % (42.0-52.0); HEMOGLOBIN. 10.5 g/dL (14.0-18.0); LYMPHOCYTES % 8.9 % (20.0-50.0); MEAN CORPUSCULAR HEMOGLOBIN 30.7 pg (28.0-32.0); MEAN CORPUSCULAR VOLUME 95.1 fL (80.0-94.0); MEAN PLATELET VOLUME 9.5 fl (7.4-10.4); PLATELET 165 x1000/uL (130-400); RED BLOOD CELL COUNT 3.41 mill/uL (4.7-6.1); RED CELL DISTRIBUTION WIDTH 14.2 % (11.6-14.6)
[2018-10-05 05:36] LABS: CHLORIDE 107 mEq/L (98-107)
[2018-10-05 05:48] LABS: PHOSPHORUS 3.3 mg/dL (2.5-4.9)
[2018-10-05 05:49] LABS: LDL CHOLESTEROL 114 mg/dL (5-100)
[2018-10-05 05:51] LABS: T4 FREE 1.46 ng/dL (0.76-1.46)
[2018-10-05 05:53] LABS: HDL CHOLESTEROL 48 mg/dL (40-59)
[2018-10-05] MEDS: BUDESONIDE 0.5MG/2ML NEB HHN SCH ×2 (08:57→20:17)
[2018-10-05] MEDS: FOLIC ACID/VITAMIN B COMP W-C TABLET PO SCH (09:35)
[2018-10-05] MEDS: CARVEDILOL 12.5MG TABLET PO SCH ×2 (09:35→21:38)
[2018-10-05] MEDS: OXYMETAZOLINE HCL NASAL SPRAY 15ML BOTHNSTRLS SCH ×2 (09:36→21:39)
[2018-10-05] MEDS: IRON SUCROSE COMPLEX 100 MG/5 ML ML IV SCH (09:36)
[2018-10-05] MEDS: DOCUSATE SODIUM 250MG CAPSULE PO SCH (09:36)
[2018-10-05] MEDS ORDERED: VANCOMYCIN 1 G PREMIX 200 ML IV NR (21:00)
[2018-10-05] MEDS ORDERED: PANTOPRAZOLE 40MG DR TABLET PO NR (21:09)
[2018-10-05] MEDS ORDERED: MAGNESIUM/ALUMINUM HYDROXIDE/SIMETHICONE 30ML UDC PO PRN (21:15)
[2018-10-05] MEDS: LORATADINE PO SCH (21:38)
[2018-10-05] MEDS: ATORVASTATIN CALCIUM 10MG TABLET PO SCH (21:38)
[2018-10-05] MEDS: PSEUDOEPHEDRINE PO SCH (21:38)
[2018-10-05] MEDS: ACETAMINOPHEN 325MG TABLET PO PRN (23:30)
[2018-10-06] VITALS (15 sets, daily range): BP systolic 124–179; BP diastolic 61–97
[2018-10-06] MEDS: ALBUTEROL (0.083%) 2.5MG/3ML NEB HHN SCH ×4 (01:20→20:40)
[2018-10-06] MEDS: PIPERACILLIN/TAZ 2.25G PREMIX 50 ML IV SCH ×3 (03:40→21:47)
[2018-10-06 05:31] LABS: BASOPHILS % 0.2 % (0.0-2.0); HEMATOCRIT. 32.7 % (42.0-52.0); HEMOGLOBIN. 10.6 g/dL (14.0-18.0); LYMPHOCYTES % 8.5 % (20.0-50.0); MEAN CORPUSCULAR HEMOGLOBIN 30.5 pg (28.0-32.0); MEAN CORPUSCULAR VOLUME 94.6 fL (80.0-94.0); MEAN PLATELET VOLUME 9.6 fl (7.4-10.4); MONOCYTES % 4.4 % (2.0-8.0); NEUTROPHILS % 86.9 % (40.0-76.0); PLATELET 200 x1000/uL (130-400); RED BLOOD CELL COUNT 3.46 mill/uL (4.7-6.1); RED CELL DISTRIBUTION WIDTH 14.2 % (11.6-14.6)
[2018-10-06] MEDS: SODIUM CHLORIDE 0.9% INJ 3ML FLUSH IVF SCH ×3 (05:34→21:49)
[2018-10-06] MEDS: METHYLPREDNISOLONE SOD SUCC 125 MG/2 ML VIAL IV SCH ×3 (05:49→11:30)
[2018-10-06 05:55] LABS: PHOSPHORUS 2.4 mg/dL (2.5-4.9)
[2018-10-06] MEDS: BUDESONIDE 0.5MG/2ML NEB HHN SCH ×2 (08:47→20:40)
[2018-10-06] MEDS: FOLIC ACID/VITAMIN B COMP W-C TABLET PO SCH (09:47)
[2018-10-06] MEDS: DOCUSATE SODIUM 250MG CAPSULE PO SCH (09:47)
[2018-10-06] MEDS: CARVEDILOL 12.5MG TABLET PO SCH ×2 (09:48→21:51)
[2018-10-06] MEDS: OXYMETAZOLINE HCL NASAL SPRAY 15ML BOTHNSTRLS SCH ×2 (09:49→21:48)
[2018-10-06] MEDS: IRON SUCROSE COMPLEX 100 MG/5 ML ML IV SCH (09:54)
[2018-10-06] MEDS ORDERED: SODIUM PHOS,M-BASIC-D-BASIC 10 MM in DEXT 5% WATER 246.6667 ML IV SCH (13:00)
[2018-10-06 16:20] LABS: CLARITY URINE CLEAR (CLEAR); COLOR URINE YELLOW (YELLOW); KETONES URINE TRACE (NEGATIVE); LEUKOCYTE ESTERASE URINE NEGATIVE (NEGATIVE); NITRITE URINE NEGATIVE (NEGATIVE); OCCULT BLOOD URINE TRACE (NEGATIVE); PROTEIN URINE 1+ (NEGATIVE); SPECIFIC GRAVITY URINE 1.022 (1.005-1.030); UROBILINOGEN URINE 0.2 E.U./dL (0.2-1.0)
[2018-10-06] MEDS: PREDNISONE 10MG TABLET PO SCH (17:18)
[2018-10-06] MEDS: ATORVASTATIN CALCIUM 10MG TABLET PO SCH (21:48)
[2018-10-06] MEDS: PSEUDOEPHEDRINE PO SCH (21:48)
[2018-10-06] MEDS: LORATADINE PO SCH (21:48)
[2018-10-06] MEDS: ZOLPIDEM TARTRATE 5MG TABLET PO PRN (23:42)
[2018-10-07] VITALS: BP 158/91
[2018-10-07] MEDS: ALBUTEROL (0.083%) 2.5MG/3ML NEB HHN SCH ×2 (00:40→08:11)
[2018-10-07 04:00] VITALS: BP 164/78
[2018-10-07] MEDS: PIPERACILLIN/TAZ 2.25G PREMIX 50 ML IV SCH (05:46)
[2018-10-07 05:47] LABS: HEMATOCRIT. 33.1 % (42.0-52.0); HEMOGLOBIN. 10.7 g/dL (14.0-18.0); LYMPHOCYTES % 7.3 % (20.0-50.0); MEAN CORPUSCULAR HEMOGLOBIN 30.7 pg (28.0-32.0); MEAN CORPUSCULAR VOLUME 94.7 fL (80.0-94.0); MEAN PLATELET VOLUME 9.6 fl (7.4-10.4); MONOCYTES % 6.1 % (2.0-8.0); NEUTROPHILS % 86.6 % (40.0-76.0); PLATELET 207 x1000/uL (130-400); RED CELL DISTRIBUTION WIDTH 14.3 % (11.6-14.6)
[2018-10-07 06:05] LABS: PHOSPHORUS 3.5 mg/dL (2.5-4.9)
[2018-10-07 08:00] VITALS: BP 116/80
[2018-10-07] MEDS: BUDESONIDE 0.5MG/2ML NEB HHN SCH (08:11)
[2018-10-07] MEDS: FOLIC ACID/VITAMIN B COMP W-C TABLET PO SCH (08:59)
[2018-10-07] MEDS: OXYMETAZOLINE HCL NASAL SPRAY 15ML BOTHNSTRLS SCH (08:59)
[2018-10-07] MEDS: CARVEDILOL 12.5MG TABLET PO SCH (08:59)
[2018-10-07] MEDS: DOCUSATE SODIUM 250MG CAPSULE PO SCH (08:59)
[2018-10-07] MEDS: PREDNISONE 10MG TABLET PO SCH (08:59)
[2018-10-07 11:04] VITALS: BP 116/80
[2018-10-08 13:06] LABS: HELICOBACTER PYLORI AB IGG 0.3 (0.00-0.79)
[2018-10-10] MEDS ORDERED: PREDNISONE 20MG TABLET PO SCH (17:00)
[2018-10-15] MEDS ORDERED: PREDNISONE 20MG TABLET PO SCH (09:00)
== END 2018-10-07 11:55 | disposition home or self-care (01) | DRG 314 ==
LOC: 8WST 13:52 → MICUNO 10-04 17:38 → MICUSO 10-04 23:04 → MICUNO 10-05 02:17 → 8WST 10-06 12:15
PROVIDERS: ADMIT Internal Medicine; ATTEND Internal Medicine
PROC: 0JH63XZ Insertion of Tunneled Vascular Access Device into Chest Subcutaneous Tissue and Fascia, Percutaneous Approach (ICD-10-PCS; principal; 2018-10-01)
PROC: 02HV33Z Insertion of Infusion Device into Superior Vena Cava, Percutaneous Approach (ICD-10-PCS; 2018-10-01)
PROC: B518ZZA Fluoroscopy of Superior Vena Cava, Guidance (ICD-10-PCS; 2018-10-01)
PROC: B548ZZA Ultrasonography of Superior Vena Cava, Guidance (ICD-10-PCS; 2018-10-01)
PROC: 5A1D70Z Performance of Urinary Filtration, Intermittent, Less than 6 Hours Per Day (ICD-10-PCS; 2018-10-01)
PROC: 5A1D70Z Performance of Urinary Filtration, Intermittent, Less than 6 Hours Per Day (ICD-10-PCS; 2018-10-02)
PROC: 5A1D70Z Performance of Urinary Filtration, Intermittent, Less than 6 Hours Per Day (ICD-10-PCS; 2018-10-04)
DX: T82.868A Thrombosis due to vascular prosthetic devices, implants and grafts, initial encounter (principal); N18.6 End stage renal disease; N17.9 Acute kidney failure, unspecified; I13.2 Hypertensive heart and chronic kidney disease with heart failure and with stage 5 chronic kidney disease, or end stage renal disease; I42.0 Dilated cardiomyopathy; I50.22 Chronic systolic (congestive) heart failure; N25.81 Secondary hyperparathyroidism of renal origin; L03.90 Cellulitis, unspecified; E87.5 Hyperkalemia; K76.9 Liver disease, unspecified; I27.20 Pulmonary hypertension, unspecified; M10.9 Gout, unspecified; J44.9 Chronic obstructive pulmonary disease, unspecified; E78.5 Hyperlipidemia, unspecified; E03.9 Hypothyroidism, unspecified; I25.10 Atherosclerotic heart disease of native coronary artery without angina pectoris; E83.51 Hypocalcemia; K21.9 Gastro-esophageal reflux disease without esophagitis; K27.9 Peptic ulcer, site unspecified, unspecified as acute or chronic, without hemorrhage or perforation; M54.5 Low back pain; G89.4 Chronic pain syndrome; J01.00 Acute maxillary sinusitis, unspecified; I44.7 Left bundle-branch block, unspecified; Y83.2 Surgical operation with anastomosis, bypass or graft as the cause of abnormal reaction of the patient, or of later complication, without mention of misadventure at the time of the procedure; J01.90 Acute sinusitis, unspecified; I88.9 Nonspecific lymphadenitis, unspecified; K11.20 Sialoadenitis, unspecified; K76.0 Fatty (change of) liver, not elsewhere classified; M19.90 Unspecified osteoarthritis, unspecified site; E83.39 Other disorders of phosphorus metabolism; B35.9 Dermatophytosis, unspecified; Z82.49 Family history of ischemic heart disease and other diseases of the circulatory system; Z99.2 Dependence on renal dialysis; Z95.0 Presence of cardiac pacemaker; Z87.891 Personal history of nicotine dependence; Z87.442 Personal history of urinary calculi; Y92.89 Other specified places as the place of occurrence of the external cause; D63.8 Anemia in other chronic diseases classified elsewhere; K11.21 Acute sialoadenitis
CPT/HCPCS: 36415; 36558; 70486; 70490; 71045; 76700; 76937; 77001; 80048; 80061; 80069; 80076; 80202; 82248; 82728; 83036; 83540; 83550; 83735; 83970; 84100; 84439; 84443; 84481; 84484; 84550; 85651; 86301; 86677; 86705; 86706; 86709; 86803; 87340; 93005; 93306; 93971; 94640; 99152; 99153; C1750; C1769; J0690; J0885; J1170; J1642; J2150; J2405; J2543; J2930; J3010; J3370; J3490; J7040; J7050; J7060; J7512; J7611; J7626; G0500

== ENCOUNTER 2021-11-11 11:17 | Inpatient (IN) | payer MEDICARE, BC ==
[~2021-11-11] VITALS: Ht 167.6 cm; Wt 63.5 kg
[~2021-11-11 11:17] MED LIST changes: -CITR473S4 PO; -FURO80TA87 PO
[2021-11-11] MEDS: BUDESONIDE 0.5MG/2ML NEB HHN SCH (11:30)
[2021-11-11] MEDS ORDERED: SODIUM CHLORIDE 0.9% 500 ML IV ONE (12:00)
[2021-11-11 12:15] LABS: BASOPHILS % 0.4 % (0.0-2.0); EOSINOPHILS % 1.9 % (0.0-5.0); HEMATOCRIT. 27.8 % (42.0-52.0); HEMOGLOBIN. 8.7 g/dL (14.0-18.0); LYMPHOCYTES % 22.7 % (20.0-50.0); MEAN CORPUSCULAR HEMOGLOBIN 30.3 pg (28.0-32.0); MEAN CORPUSCULAR VOLUME 96.4 fL (80.0-94.0); MEAN PLATELET VOLUME 10.7 fl (7.4-10.4); PLATELET 200 x1000/uL (130-400); RED BLOOD CELL COUNT 2.88 mill/uL (4.7-6.1)
[2021-11-11 12:30] LABS: PROTHROMBIN TIME 10.9 sec (9.6-11.0)
[2021-11-11 12:39] LABS: CHLORIDE 102 mEq/L (98-107)
[2021-11-11] MEDS ORDERED: ACETAMINOPHEN 325MG TABLET PO PRN ×2 (15:00)
[2021-11-11] MEDS ORDERED: ONDANSETRON HCL 4MG/2ML INJ IV PRN (15:00)
[2021-11-11] MEDS ORDERED: MAGNESIUM/ALUMINUM HYDROXIDE/SIMETHICONE 30ML UDC PO PRN (15:00)
[2021-11-11 16:30] VITALS: BP 106/57
[2021-11-11 20:00] VITALS: BP 102/44
[2021-11-11] MEDS ORDERED: INFLUENZA VACCINE 05/PF 0.5 ML SYRINGE IM ONE (20:00)
[2021-11-11] MEDS ORDERED: EPOETIN ALFA 10000UNITS/ML VIAL SUBCUT SCH (21:00)
[2021-11-11] MEDS ORDERED: FURO80TA3 PO (21:23)
[2021-11-11] MEDS ORDERED: OMEP20CA14 PO (21:23)
[2021-11-11] MEDS ORDERED: PREG75CA75 PO (21:23)
[2021-11-11] MEDS ORDERED: ALLO100T PO (21:23)
[2021-11-11] MEDS ORDERED: HYDR-4135 PO (21:23)
[2021-11-11] MEDS ORDERED: ASPI-1160 PO (21:23)
[2021-11-11] MEDS: SODIUM CHLORIDE 0.9% INJ 3ML FLUSH IVF SCH (22:00)
[2021-11-12] VITALS: BP 112/60
[2021-11-12 04:00] VITALS: BP 176/82
[2021-11-12] MEDS: SODIUM CHLORIDE 0.9% INJ 3ML FLUSH IVF SCH ×3 (05:48→22:00)
[2021-11-12] MEDS: LEVOTHYROXINE SODIUM 150MCG TABLET PO SCH (05:54)
[2021-11-12 07:20] LABS: BASOPHILS % 0.7 % (0.0-2.0); EOSINOPHILS % 2.2 % (0.0-5.0); HEMOGLOBIN. 7.9 g/dL (14.0-18.0); LYMPHOCYTES % 28.6 % (20.0-50.0); MEAN CORPUSCULAR VOLUME 94.7 fL (80.0-94.0); MEAN PLATELET VOLUME 10.7 fl (7.4-10.4); MONOCYTES % 10.4 % (2.0-8.0); NEUTROPHILS % 58.1 % (40.0-76.0); PLATELET 195 x1000/uL (130-400); RED BLOOD CELL COUNT 2.64 mill/uL (4.7-6.1); RED CELL DISTRIBUTION WIDTH 17.8 % (11.6-14.6)
[2021-11-12 08:00] VITALS: BP 116/63
[2021-11-12] MEDS: BUDESONIDE 0.5MG/2ML NEB HHN SCH ×2 (10:15→22:15)
[2021-11-12] MEDS ORDERED: HYDRALAZINE 20MG/ML VIAL IV PRN (10:15)
[2021-11-12 11:40] LABS: TOTAL IRON BINDING CAPACITY 255 ug/dL (250-450)
[2021-11-12 12:00] VITALS: BP 141/80
[2021-11-12] MEDS: IRON SUCROSE COMPLEX 100 MG/5 ML ML IV SCH (16:03)
[2021-11-12 16:15] VITALS: BP 120/74
[2021-11-12] MEDS: MONTELUKAST SODIUM 10MG TABLET PO SCH (17:39)
[2021-11-12 20:34] VITALS: BP 125/67
[2021-11-12] MEDS: HYDRALAZINE HCL 50MG TABLET PO SCH (21:00)
[2021-11-12] MEDS: ATORVASTATIN CALCIUM 10MG TABLET PO SCH (21:00)
[2021-11-12] MEDS: CARVEDILOL 6.25 MG TABLET PO SCH (21:00)
[2021-11-13 00:14] VITALS: BP 138/78
[2021-11-13] MEDS ORDERED: VANCOMYCIN 1GM PMX (XELLIA) 200 ML IV SCH (03:00)
[2021-11-13 04:00] VITALS: BP 149/73
[2021-11-13] MEDS: SODIUM CHLORIDE 0.9% INJ 3ML FLUSH IVF SCH ×3 (05:22→21:43)
[2021-11-13] MEDS: LEVOTHYROXINE SODIUM 150MCG TABLET PO SCH (06:30)
[2021-11-13 08:00] VITALS: BP 125/62
[2021-11-13] MEDS: HYDRALAZINE HCL 50MG TABLET PO SCH ×2 (08:38→21:41)
[2021-11-13] MEDS: CARVEDILOL 6.25 MG TABLET PO SCH ×2 (08:39→21:43)
[2021-11-13] MEDS: ASPIRIN 81MG EC TABLET PO SCH (08:40)
[2021-11-13] MEDS: BUDESONIDE 0.5MG/2ML NEB HHN SCH ×2 (09:17→21:35)
[2021-11-13 12:00] VITALS: BP 120/68
[2021-11-13] MEDS: IRON SUCROSE COMPLEX 100 MG/5 ML ML IV SCH (14:06)
[2021-11-13 16:00] VITALS: BP 120/64
[2021-11-13 16:07] LABS: BASOPHILS % 1.3 % (0.0-2.0); EOSINOPHILS % 3.4 % (0.0-5.0); HEMATOCRIT. 25.2 % (42.0-52.0); HEMOGLOBIN. 7.8 g/dL (14.0-18.0); LYMPHOCYTES % 27.2 % (20.0-50.0); MEAN CORPUSCULAR VOLUME 96.5 fL (80.0-94.0); MEAN PLATELET VOLUME 10.5 fl (7.4-10.4); MONOCYTES % 5.9 % (2.0-8.0); NEUTROPHILS % 62.2 % (40.0-76.0); PLATELET 212 x1000/uL (130-400); RED BLOOD CELL COUNT 2.61 mill/uL (4.7-6.1); RED CELL DISTRIBUTION WIDTH 17.7 % (11.6-14.6)
[2021-11-13] MEDS: MONTELUKAST SODIUM 10MG TABLET PO SCH (19:01)
[2021-11-13 20:00] VITALS: BP 124/75
[2021-11-13] MEDS: ATORVASTATIN CALCIUM 10MG TABLET PO SCH (21:43)
[2021-11-14] VITALS: BP 96/48
[2021-11-14 04:00] VITALS: BP 131/53
[2021-11-14] MEDS: LEVOTHYROXINE SODIUM 150MCG TABLET PO SCH (05:47)
[2021-11-14] MEDS: SODIUM CHLORIDE 0.9% INJ 3ML FLUSH IVF SCH (05:47)
[2021-11-14 08:00] VITALS: BP 146/85
[2021-11-14] MEDS: BUDESONIDE 0.5MG/2ML NEB HHN SCH (08:21)
[2021-11-14] MEDS: ASPIRIN 81MG EC TABLET PO SCH (08:43)
[2021-11-14] MEDS: HYDRALAZINE HCL 50MG TABLET PO SCH (08:43)
[2021-11-14] MEDS: CARVEDILOL 6.25 MG TABLET PO SCH (08:43)
[2021-11-14 11:50] VITALS: BP 106/62
[2021-11-14] MEDS ORDERED: VANCOMYCIN 500 MG in DEXT 5% WATER 100 ML IV NR (13:00)
[2021-11-14 15:38] VITALS: BP 142/86
[2021-11-14 15:42] VITALS: BP 142/86
== END 2021-11-14 16:00 | disposition home or self-care (01) | DRG 73 ==
LOC: ER 11:25 → 7EST 14:09 → EDBEDREQ 14:14 → EDBEDREQSVC 14:14 → EDBEDREQTM 14:14 → ENRESERV 14:31
PROVIDERS: ADMIT Internal Medicine; ATTEND Internal Medicine
PROC: 3E1M39Z Irrigation of Peritoneal Cavity using Dialysate, Percutaneous Approach (ICD-10-PCS; principal; 2021-11-13)
DX: G90.8 Other disorders of autonomic nervous system (principal); N18.6 End stage renal disease; I42.8 Other cardiomyopathies; R78.81 Bacteremia; I12.0 Hypertensive chronic kidney disease with stage 5 chronic kidney disease or end stage renal disease; N17.9 Acute kidney failure, unspecified; J44.9 Chronic obstructive pulmonary disease, unspecified; D63.8 Anemia in other chronic diseases classified elsewhere; E03.9 Hypothyroidism, unspecified; G25.3 Myoclonus; H10.419 Chronic giant papillary conjunctivitis, unspecified eye; M19.90 Unspecified osteoarthritis, unspecified site; Z96.89 Presence of other specified functional implants; K21.9 Gastro-esophageal reflux disease without esophagitis; I95.9 Hypotension, unspecified; Z86.79 Personal history of other diseases of the circulatory system; Z99.2 Dependence on renal dialysis; Z95.810 Presence of automatic (implantable) cardiac defibrillator; Z79.899 Other long term (current) drug therapy
CPT/HCPCS: 36415; 71045; 80048; 80053; 80202; 83036; 83540; 83550; 83605; 83880; 84145; 84443; 84484; 85025; 86850; 86900; 93005; 93306; 94640; 99285; J0885; J3370; J7040; J7060; J7626

== ENCOUNTER 2022-04-09 14:29 | Inpatient (IN) | payer MEDICARE, BC ==
[~2022-04-09] VITALS: Ht 175.3 cm; Wt 73.9 kg
[~2022-04-09 14:29] MED LIST changes: +ALLO100T PO; +ASPI-1160 PO; +FURO80TA3 PO; +HYDR-4135 PO; +OMEP20CA14 PO; +PREG75CA75 PO
[2022-04-09 15:34] LABS: BASOPHILS % 1.1 % (0.0-2.0); EOSINOPHILS % 2.3 % (0.0-5.0); HEMATOCRIT. 34.2 % (42.0-52.0); LYMPHOCYTES % 31.4 % (20.0-50.0); MEAN CORPUSCULAR HEMOGLOBIN 30.6 pg (28.0-32.0); MEAN CORPUSCULAR VOLUME 95.5 fL (80.0-94.0); MEAN PLATELET VOLUME 10.3 fl (7.4-10.4); MONOCYTES % 8.1 % (2.0-8.0); NEUTROPHILS % 57.1 % (40.0-76.0); PLATELET 170 x1000/uL (130-400); RED BLOOD CELL COUNT 3.58 mill/uL (4.7-6.1); RED CELL DISTRIBUTION WIDTH 16.5 % (11.6-14.6)
[2022-04-09 15:42] LABS: CHLORIDE 106 mEq/L (98-107)
[2022-04-09 15:44] LABS: PROTHROMBIN TIME 11.1 sec (9.6-11.0)
[2022-04-09 15:51] LABS: ETHANOL BLOOD < 10 mg/dL
[2022-04-09] MEDS ORDERED: DEXTROSE 50% WATER 50ML SYRINGE IV ONE (22:45)
[2022-04-09] MEDS ORDERED: ALBUTEROL (0.083%) 2.5MG/3ML NEB HHN ONE (22:45)
[2022-04-09] MEDS ORDERED: INSULIN REGULAR (HUMULIN R) 300UNITS/3ML VIAL IV ONE (22:45)
[2022-04-09] MEDS ORDERED: ALBUTEROL (0.5%) 2.5MG/0.5ML NEB HHN ONE (23:20)
[2022-04-09 23:45] VITALS: BP 150/78
[2022-04-10] VITALS (7 sets, daily range): BP systolic 117–184; BP diastolic 58–91
[2022-04-10] MEDS ORDERED: ONDANSETRON HCL 4MG/2ML INJ IV PRN (00:45)
[2022-04-10] MEDS ORDERED: DIPHENHYDRAMINE 50MG/ML VIAL IV PRN (00:45)
[2022-04-10] MEDS ORDERED: ACETAMINOPHEN 325MG TABLET PO PRN ×2 (00:45)
[2022-04-10] MEDS ORDERED: HYDRALAZINE 20MG/ML VIAL IV PRN (00:45)
[2022-04-10] MEDS: DEXT 5%/0.45% NACL 1000ML 1,000 ML IV SCH (01:35)
[2022-04-10] MEDS ORDERED: DEXTROSE 50% WATER 50ML SYRINGE IV ONE (06:00)
[2022-04-10] MEDS ORDERED: LEVETIRACETAM 500MG PREMIX 100 ML IV SCH (06:00)
[2022-04-10 07:45] LABS: BASOPHILS % 0.5 % (0.0-2.0); EOSINOPHILS % 2.1 % (0.0-5.0); HEMATOCRIT. 31.9 % (42.0-52.0); HEMOGLOBIN. 10.3 g/dL (14.0-18.0); LYMPHOCYTES % 34.5 % (20.0-50.0); MEAN CORPUSCULAR HEMOGLOBIN 31.2 pg (28.0-32.0); MEAN CORPUSCULAR VOLUME 96.1 fL (80.0-94.0); MEAN PLATELET VOLUME 10.4 fl (7.4-10.4); MONOCYTES % 7.9 % (2.0-8.0); PLATELET 169 x1000/uL (130-400); RED BLOOD CELL COUNT 3.32 mill/uL (4.7-6.1); RED CELL DISTRIBUTION WIDTH 16.2 % (11.6-14.6)
[2022-04-10 11:10] LABS: HEPATITIS B SURFACE ANTIGEN NEGATIVE
[2022-04-10] MEDS: CLONIDINE 0.1MG TABLET PO PRN (13:10)
[2022-04-10 14:33] LABS: T4 FREE 0.98 ng/dL (0.76-1.46)
[2022-04-11] VITALS: BP 141/63
[2022-04-11] MEDS: DEXT 5%/0.45% NACL 1000ML 1,000 ML IV SCH ×2 (01:09→17:22)
[2022-04-11 04:00] VITALS: BP 136/64
[2022-04-11 08:00] VITALS: BP 154/70
[2022-04-11 12:00] VITALS: BP 131/70
[2022-04-11 16:00] VITALS: BP 112/56
[2022-04-11 20:00] VITALS: BP 158/72
[2022-04-12] VITALS: BP 149/69
[2022-04-12 04:00] VITALS: BP 157/75
[2022-04-12 07:32] LABS: CHLORIDE 109 mEq/L (98-107)
[2022-04-12 07:54] VITALS: BP 152/70
[2022-04-12 11:44] VITALS: BP 146/74
[2022-04-12] MEDS: DEXT 5%/0.45% NACL 1000ML 1,000 ML IV SCH (12:45)
[2022-04-12 16:00] VITALS: BP 148/72
[2022-04-12 17:00] VITALS: BP 148/72
[2022-04-12] MEDS: CLONIDINE 0.1MG TABLET PO PRN (21:49)
== END 2022-04-12 22:50 | DRG 64 ==
LOC: ER 14:29 → 6WST 23:28 → EDBEDREQTM 23:30 → EDBEDREQ 23:30 → 6WST 04-12 17:25
PROVIDERS: ADMIT Internal Medicine; ATTEND Internal Medicine
PROC: 4A00X4Z Measurement of Central Nervous Electrical Activity, External Approach (ICD-10-PCS; principal; 2022-04-10)
DX: I63.9 Cerebral infarction, unspecified (principal); G92.8 Other toxic encephalopathy; J96.00 Acute respiratory failure, unspecified whether with hypoxia or hypercapnia; N18.6 End stage renal disease; I13.2 Hypertensive heart and chronic kidney disease with heart failure and with stage 5 chronic kidney disease, or end stage renal disease; I50.22 Chronic systolic (congestive) heart failure; I42.0 Dilated cardiomyopathy; E03.9 Hypothyroidism, unspecified; M10.9 Gout, unspecified; M19.90 Unspecified osteoarthritis, unspecified site; K21.9 Gastro-esophageal reflux disease without esophagitis; I25.10 Atherosclerotic heart disease of native coronary artery without angina pectoris; J44.9 Chronic obstructive pulmonary disease, unspecified; E83.52 Hypercalcemia; J32.0 Chronic maxillary sinusitis; M48.00 Spinal stenosis, site unspecified; G25.3 Myoclonus; E78.5 Hyperlipidemia, unspecified; E87.5 Hyperkalemia; Z99.2 Dependence on renal dialysis; Z95.810 Presence of automatic (implantable) cardiac defibrillator
CPT/HCPCS: 36415; 71045; 80048; 80053; 80320; 82140; 82962; 84439; 84443; 84550; 85025; 86705; 86709; 86803; 87340; 92610; 93005; 93922; 95816; 97116; 97162; 97166; 97530; 99291; J0360; J1953; G0480

== ENCOUNTER 2022-04-12 22:48 | Inpatient (IN) | payer MEDICARE, BC ==
[~2022-04-12] VITALS: Ht 175.3 cm; Wt 69.0 kg
[2022-04-12 22:48] VITALS: BP 103/50
[2022-04-12 22:50] VITALS: BP 103/50
[2022-04-13] MEDS ORDERED: HYDRALAZINE 20MG/ML VIAL IV PRN (02:45)
[2022-04-13] MEDS ORDERED: CLONIDINE 0.1MG TABLET PO PRN (02:45)
[2022-04-13] MEDS: DEXT 5%/0.45% NACL 1000ML 1,000 ML IV SCH ×2 (02:45→22:45)
[2022-04-13] MEDS ORDERED: DIPHENHYDRAMINE 50MG/ML VIAL IV PRN (02:45)
[2022-04-13] MEDS ORDERED: ONDANSETRON HCL 4MG/2ML INJ IV PRN (02:45)
[2022-04-13] MEDS ORDERED: ACETAMINOPHEN 325MG TABLET PO PRN ×2 (02:45)
[2022-04-13] MEDS ORDERED: HYDRALAZINE 10 MG in SODIUM CHLORIDE 0.9% 49.5 ML IV PRN (03:15)
[2022-04-13 08:00] VITALS: BP 121/72
[2022-04-13 10:25] LABS: BASOPHILS % 0.9 % (0.0-2.0); EOSINOPHILS % 1.9 % (0.0-5.0); HEMATOCRIT. 31.8 % (42.0-52.0); HEMOGLOBIN. 10.1 g/dL (14.0-18.0); LYMPHOCYTES % 21.7 % (20.0-50.0); MEAN CORPUSCULAR HEMOGLOBIN 30.5 pg (28.0-32.0); MEAN CORPUSCULAR VOLUME 95.5 fL (80.0-94.0); MONOCYTES % 6.6 % (2.0-8.0); NEUTROPHILS % 68.9 % (40.0-76.0); PLATELET 151 x1000/uL (130-400); RED BLOOD CELL COUNT 3.33 mill/uL (4.7-6.1); RED CELL DISTRIBUTION WIDTH 15.6 % (11.6-14.6)
[2022-04-13 10:31] LABS: CHLORIDE 102 mEq/L (98-107)
[2022-04-13 20:00] VITALS: BP 151/78
[2022-04-13 23:15] VITALS: BP 156/68
[2022-04-14 08:00] VITALS: BP 162/80
[2022-04-14] MEDS: ENOXAPARIN 30MG/0.3ML SYR SUBCUT SCH (08:21)
[2022-04-14 20:00] VITALS: BP 148/73
[2022-04-14 22:20] LABS: HEPATITIS B SURFACE ANTIGEN NEGATIVE
[2022-04-15 08:00] VITALS: BP 127/61
[2022-04-15] MEDS: ENOXAPARIN 30MG/0.3ML SYR SUBCUT SCH (08:37)
[2022-04-15] MEDS ORDERED: MIDO5TAB4 PO (19:30)
[2022-04-15 20:00] VITALS: BP 130/66
[2022-04-16 07:53] VITALS: BP 157/70
[2022-04-16] MEDS: ENOXAPARIN 30MG/0.3ML SYR SUBCUT SCH (08:49)
[2022-04-16 10:22] VITALS: BP 18/157
== END 2022-04-16 11:20 | disposition home health service (06) | DRG 91 ==
PROVIDERS: ADMIT Psychiatry & Neurology Neurology; ATTEND Internal Medicine
PROC: 5A1D70Z Performance of Urinary Filtration, Intermittent, Less than 6 Hours Per Day (ICD-10-PCS; principal; 2022-04-13)
PROC: 5A1D70Z Performance of Urinary Filtration, Intermittent, Less than 6 Hours Per Day (ICD-10-PCS; 2022-04-15)
DX: G92.8 Other toxic encephalopathy (principal); I63.9 Cerebral infarction, unspecified; N18.6 End stage renal disease; I50.22 Chronic systolic (congestive) heart failure; I42.0 Dilated cardiomyopathy; I13.2 Hypertensive heart and chronic kidney disease with heart failure and with stage 5 chronic kidney disease, or end stage renal disease; R62.7 Adult failure to thrive; M10.9 Gout, unspecified; E87.5 Hyperkalemia; E03.9 Hypothyroidism, unspecified; M48.00 Spinal stenosis, site unspecified; R53.81 Other malaise; E78.5 Hyperlipidemia, unspecified; J44.9 Chronic obstructive pulmonary disease, unspecified; I25.10 Atherosclerotic heart disease of native coronary artery without angina pectoris; E83.52 Hypercalcemia; G25.3 Myoclonus; J32.0 Chronic maxillary sinusitis; Z99.2 Dependence on renal dialysis; Z95.810 Presence of automatic (implantable) cardiac defibrillator; Z79.899 Other long term (current) drug therapy; Z79.82 Long term (current) use of aspirin
CPT/HCPCS: 36415; 80053; 85025; 86705; 86709; 86803; 87340; 92523; 92610; 93970; 93971; 97110; 97112; 97116; 97162; 97166; 97530; 97535; J1650

== ENCOUNTER 2024-09-26 14:38 | Emergency (ER) | payer BC, MEDICARE ==
[~2024-09-26] VITALS: Ht 170.2 cm; Wt 74.0 kg
[~2024-09-26 14:38] MED LIST changes: +CYAN-50 PO; -FEBU40TA PO; -FLUT1DIS3 IH; -HYDR-4135 PO; -LEVO150T8 PO; +LEVO75TA PO; -METO25TA6 PO; +MIDO5TAB4 PO; -MONT10TA21 PO; -OMEP20CA14 PO; -PREG75CA75 PO; +VITA-261 PO; +ZINC50CA2 PO
[2024-09-26 14:44] VITALS: TEMP 36.7; O2SAT 100
[2024-09-26 15:25] LABS: BASOPHILS % 1.4 % (0.0-2.0); EOSINOPHILS % 2.7 % (0.0-5.0); HEMATOCRIT. 32.6 % (42.0-52.0); HEMOGLOBIN. 10.2 g/dL (14.0-18.0); MEAN CORPUSCULAR HEMOGLOBIN 29.8 pg (28.0-32.0); MEAN CORPUSCULAR HGB CONC 31.3 g/dL (31.0-37.0); MEAN CORPUSCULAR VOLUME 95.2 fL (80.0-94.0); MEAN PLATELET VOLUME 9.5 fl (7.4-10.4); MONOCYTES % 11.2 % (2.0-8.0); NEUTROPHILS % 52.7 % (40.0-76.0); PLATELET 157 x1000/uL (130-400); RED BLOOD CELL COUNT 3.42 mill/uL (4.7-6.1); RED CELL DISTRIBUTION WIDTH 18.1 % (11.6-14.6)
[2024-09-26 15:31] LABS: POTASSIUM 3.6 mEq/L (3.5-5.1)
[2024-09-26 15:32] LABS: CALCIUM 8.8 mg/dL (8.7-10.4)
[2024-09-26 15:37] LABS: CREATININE 4.3 mg/dL (0.6-1.3); PARTIAL THROMBOPLASTIN TIME 29.1 sec (23.4-31.0); PROTHROMBIN TIME 10.4 sec (9.6-11.0)
[2024-09-26 16:05] VITALS: BP 124/85; PULSE 69; RESP 13; O2SAT 95
== END 2024-09-26 16:07 | disposition home or self-care (01) ==
LOC: ER 14:38
DX: T82.838A Hemorrhage due to vascular prosthetic devices, implants and grafts, initial encounter (principal); J44.9 Chronic obstructive pulmonary disease, unspecified; I12.0 Hypertensive chronic kidney disease with stage 5 chronic kidney disease or end stage renal disease; N18.6 End stage renal disease; Z99.2 Dependence on renal dialysis; Z79.82 Long term (current) use of aspirin; Z95.0 Presence of cardiac pacemaker; Z79.899 Other long term (current) drug therapy; Z98.890 Other specified postprocedural states; Y92.89 Other specified places as the place of occurrence of the external cause
CPT/HCPCS: 36415; 80048; 85025; 86850; 86900; 99283